=== PATIENT | female | born 1975 | race African-American/Black ===

== ENCOUNTER 2018-05-02 22:49 | Emergency (ER) | payer OTHER ==
[~2018-05-02] VITALS: Wt 87.0 kg
[~2018-05-02 22:49] MED LIST: DENIES; PREN-46 PO
[2018-05-03] MEDS ORDERED: LORA-441 PO (02:35)
[2018-05-03 03:02] VITALS: BP 124/66; PULSE 77; RESP 18
--- NOTE | 2018-05-03 05:04 | ERD ---
ER Documentation Chief Complaint Chief Complaint FEELS WEAK AFTER ARGUMENT WITH DAUGHTER HPI 42-year-old female presenting with complaints of feeling numb times 2 hours. Patient was watching TV with her daughter when she began feeling very weak and numb. She denies any chest pain or shortness of breath. She feels that she is under more stress than normal. Denies any chest pain. Has not taken medications for symptoms. Denies vomiting. Denies fever. Denies medical problems. Allergic to Compazine. Surgical history denies. Social history denies ROS All systems reviewed and are negative except as per history of present illness. Medications Home Meds Active Scripts Lorazepam* (Ativan*) 0.5 Mg Tablet, 0.5 MG PO Q8, #5 TAB Prov:MISAEL KAISER PA-C 05/03/18 Reported Medications Vit #108/Iron/Fa ( ONE TABLET) 1 Each Tablet, 1 EACH PO DAILY 05/19/13 Vit #108/Iron/Fa ( ONE TABLET) 1 Each Tablet, 1 EACH PO DAILY 02/09/13 [Denies] No Conflict Check 02/17/11 Allergies Allergies: Coded Allergies: Prochlorperazine (Verified Allergy, 02/17/11) PMhx/Soc Medical and Surgical Hx: pt denies Surgical Hx History of Surgery: No (none) Anesthesia Reaction: No Hx Neurological Disorder: No Hx Respiratory Disorders: No Hx Cardiac Disorders: No Hx Psychiatric Problems: No Hx Miscellaneous Medical Probl: Yes (gestational DM during last ) Hx Alcohol Use: No Hx Substance Use: No Hx Tobacco Use: No FmHx Family History: No diabetes, No coronary disease, No other Physical Exam Vitals Vital Signs Date Temp Pulse Resp B/P (MAP) Pulse Ox O2 O2 Flow FiO2 Time Delivery Rate 05/03/18 97.8 77 18 124/66 98 Room Air 03:02 (85) 05/02/18 96.8 83 18 137/73 100 22:55 (94) Physical Exam GENERAL: The patient is well-appearing, well-nourished, in no acute distress HEENT: Atraumatic. Conjunctivae are pink. Pupils equal, round, and reactive to light. There is no scleral icterus. Tympanic membranes clear bilaterally. Oropharynx clear. No nystagmus or photophobia. CHEST: Clear to auscultation bilaterally. There are no rales, wheezes or rhonchi. HEART: Regular rate and rhythm. No murmurs, clicks, rubs or gallops. No S3 or S4. ABDOMEN:Soft, nontender and nondistended. Good bowel sounds. No rebound or guarding. No gross peritonitis. No gross organomegaly or masses. No Sanchez sign or McBurney point tenderness. Result Diagram: 05/03/18 0147 05/03/18 0147 Results 24 hrs Laboratory Tests Test 05/03/18 01:47 White Blood Count 6.3 10^3/ul Red Blood Count 4.49 10^6/ul Hemoglobin 12.9 g/dl Hematocrit 38.5 % Mean Corpuscular Volume 85.7 fl Mean Corpuscular Hemoglobin 28.7 pg Mean Corpuscular Hemoglobin Concent 33.5 g/dl Red Cell Distribution Width 12.0 % Platelet Count 238 10^3/UL Mean Platelet Volume 10.7 fl Immature Granulocytes % 0.200 % Neutrophils % 61.0 % Lymphocytes % 29.5 % Monocytes % 7.3 % Eosinophils % 1.7 % Basophils % 0.3 % Nucleated Red Blood Cells % 0.0 /100WBC Immature Granulocytes # 0.010 10^3/ul Neutrophils # 3.9 10^3/ul Lymphocytes # 1.9 10^3/ul Monocytes # 0.5 10^3/ul Eosinophils # 0.1 10^3/ul Basophils # 0.0 10^3/ul Nucleated Red Blood Cells # 0.0 10^3/ul Sodium Level 139 mmol/L Potassium Level 4.2 mmol/L Chloride Level 102 mmol/L Carbon Dioxide Level 31 mmol/L Anion Gap 6 Blood Urea Nitrogen 12 mg/dl Creatinine 0.71 mg/dl Est Glomerular Filtrat Rate mL/min > 60 mL/min Glucose Level 115 mg/dl Calcium Level 9.4 mg/dl Total Bilirubin 0.1 mg/dl Direct Bilirubin 0.00 mg/dl Indirect Bilirubin 0.1 mg/dl Aspartate Amino Transf (AST/SGOT) 21 IU/L Alanine Aminotransferase (ALT/SGPT) 14 IU/L Alkaline Phosphatase 63 IU/L Total Protein 7.6 g/dl Albumin 4.2 g/dl Globulin 3.40 g/dl Albumin/Globulin Ratio 1.23 Procedures/MDM MDM: 42-year-old female presenting with weakness. Patient's blood work is within normal limits. Patient's vitals are stable. Exam is within normal limits. Patient is experiencing more stress than normal at home which may contribute to patient's generalized fatigue and weakness feeling. I do not feel that further blood work or imaging is indicated. Patient is discharged with supportive medications and told to follow-up with primary care within 1-2 days for close evaluation. Patient is told if symptoms change or worsen to immediately return to the ER. All questions answered at discharge Departure Diagnosis: Primary Impression: Anxiety Condition: Stable Patient Instructions: Anxiety Reaction Referrals: [facility] YOU HAVE RECEIVED A MEDICAL SCREENING EXAM AND THE RESULTS INDICATE THAT YOU DO NOT HAVE A CONDITION THAT REQUIRES URGENT TREATMENT IN THE EMERGENCY DEPARTMENT. FURTHER EVALUATION AND TREATMENT OF YOUR CONDITION CAN WAIT UNTIL YOU ARE SEEN IN YOUR DOCTORS OFFICE WITHIN THE NEXT 1-2 DAYS. IT IS YOUR RESPONSIBILITY TO MAKE AN APPOINTMENT FOR FOLOW-UP CARE. IF YOU HAVE A PRIMARY DOCTOR --you should call your primary doctor and schedule an appointment IF YOU DO NOT HAVE A PRIMARY DOCTOR YOU CAN CALL OUR PHYSICIAN REFERRAL HOTLINE AT IF YOU CAN NOT AFFORD TO SEE A PHYSICIAN YOU CAN CHOSE FROM THE FOLLOWING [facility] [address] [facility]. [facility] [place] [address] [facility] [facility] [address] [facility] [facility] [address] [facility]. [facility] [address] [facility]. [facility]. [address] [place] Additional Instructions: FOLLOW UP WITH YOUR PRIMARY CARE PHYSICIAN TOMORROW.Return to this facility if you are not improving as expected. MISAEL KAISER PA-C May 03, 2018 05:04
== END 2018-05-03 03:03 | disposition home or self-care (01) ==
LOC: FTE 22:49
DX: F41.9 Anxiety disorder, unspecified (principal)
CPT/HCPCS: 80053; 85025; Z7502; 99283